=== PATIENT | male | born 1990 | race Caucasian/White ===

== ENCOUNTER 2017-09-05 14:38 | Emergency (ER) | payer OTHER ==
[~2017-09-05] VITALS: Ht 170.2 cm; Wt 70.1 kg
[2017-09-05 14:46] VITALS: BP 127/82
[2017-09-05] MEDS ORDERED: KEFLEX500 MG PO (17:13)
[2017-09-05] MEDS ORDERED: PERCOCET 5/31 TABLET PO (17:13)
== END 2017-09-05 17:35 | disposition home or self-care (01) ==
LOC: EME 14:38
DX: S62.644B Nondisplaced fracture of proximal phalanx of right ring finger, initial encounter for open fracture (principal); W23.0XXA Caught, crushed, jammed, or pinched between moving objects, initial encounter; Y99.0 Civilian activity done for income or pay; Z23 Encounter for immunization; F17.200 Nicotine dependence, unspecified, uncomplicated
CPT/HCPCS: 73130; 99281; 99284; S0020